=== PATIENT | female | born 1980 | race Caucasian/White ===

== ENCOUNTER 2016-11-17 18:21 | Emergency (ER) | payer OTHER ==
[2016-11-17] MEDS ORDERED: MVI, ADULT NO.1 WITH VIT K 10 ML VIAL IV ONE (19:19)
[2016-11-17] MEDS ORDERED: 0.9 % SODIUM CHLORIDE 1,000 ML IV ONE (19:19)
[2016-11-17] MEDS ORDERED: THIAMINE HCL 100 MG/ML 2ML VIAL ONE (19:19)
[2016-11-17] MEDS ORDERED: FOLIC ACID 5 MG/1 ML ONE (19:19)
[2016-11-17] MEDS ORDERED: ONDANSETRON HCL/PF 4 MG/ 2ML VIAL ONE (19:19)
[2016-11-17] MEDS ORDERED: THIAMINE HCL 100 MG, MVI, ADULT NO.1 WITH VIT K 10 ML, FOLIC ACID 5 MG in 0.9 % SODIUM ... IV SCH ×4 (19:20)
[2016-11-17] MEDS ORDERED: DIAZEPAM 5 MG TABLET PO ONE ×2 (20:26→20:38)
--- NOTE | 2016-11-17 20:32 | ED Physician Documentation ---
General Adult - HISTORIAN Historian: patient - HPI Chief Complaint: General Adult Additional Information: n/e dehydration-etoh rehab [facility]. ADMN TODAY. one prev rehab for same in [place]. Onset: hours (3-4) Timing: still present Severity: mild, moderate - ROS CONST: no problems EYES/ENT: none. denies: problems with vision, sore throat CVS/RESP: denies: chest pain, shortness of breath, cough GI/: vomiting, nausea. denies: abdominal pain, problems urinating, diarrhea MS/SKIN/LYMPH: none (MULTIPLE TATTOOS) NEURO/PSYCH: anxiety. denies: headache, difficulty with speech - PAST HX Past History: other (prev etoh rehab) Other History: none Surgeries/Procedures: other (hand) - SOCIAL HX Smoking History: greater than 1 pack/day Alcohol Use: heavy Drug Use: cocaine (in past) - FAMILY HX Family History: No - REVIEWED ASSESSMENTS Nursing Assessment Reviewed: Yes Vitals Reviewed: Yes ED Results Lab/Radiology - Orders Orders: ED Orders Category Date Time Status 0.9 % Sodium Chloride [Normal Saline] 1,000 ml Med 11/17/16 19:19 Discontinued IV .STK-MED Folic Acid [Folvite] Med 11/17/16 19:19 Discontinued 5 mg .ROUTE .STK-MED ONE Mvi, Adult No.1 with Vit K [M.v.i. Adult] Med 11/17/16 19:19 Discontinued 10 ml IV .STK-MED ONE Ondansetron HCl/Pf [Zofran 4 mg/2 ml] Med 11/17/16 19:19 Discontinued 4 mg .ROUTE .STK-MED ONE Thiamine HCl Med 11/17/16 19:19 Discontinued 200 mg .ROUTE .STK-MED ONE General Adult Physical Exam - PHYSICAL EXAM GENERAL APPEARANCE: moderate distress EENT: eye inspection normal NECK: normal inspection, thyroid normal, supple RESPIRATORY: no resp distress, chest non-tender, breath sounds normal CVS: reg rate & rhythm, heart sounds normal ABDOMEN: soft, non-tender SKIN: warm/dry, normal color, other (multi tattoos). No: cyanosis, diaphoresis , jaundice EXTREMITIES: non-tender NEURO: oriented X3, motor nml, sensation nml, depressed mood/affect Discharge Clincal Impression: dehydration nausea emesis, ethanol rehab Condition: Good Disposition: 01 HOME, SELF-CARE Decision to Admit: NO Decision Time: 20:32
[2016-11-17] MEDS ORDERED: ONDANSETRON HCL/PF 4 MG/ 2ML VIAL IVP ONE (20:37)
[2016-11-17 21:51] VITALS: BP 134/86
== END 2016-11-17 20:45 | disposition home or self-care (01) ==
LOC: ED 18:21
DX: E86.0 Dehydration (principal); R11.2 Nausea with vomiting, unspecified; F10.10 Alcohol abuse, uncomplicated
CPT/HCPCS: J2405; J3411; J3490; J7030; 96361; 96374; 99283; S1016